=== PATIENT | female | born 1965 | race Caucasian/White ===

== ENCOUNTER 2021-07-03 11:41 | Emergency (ER) | payer OTHER ==
[2021-07-03] MEDS ORDERED: BACLOFEN 10MG T10 MG PO (14:23)
[2021-07-03] MEDS ORDERED: NAPROXEN500 MG PO (14:23)
== END 2021-07-03 17:32 | disposition home or self-care (01) ==
LOC: FER 11:41
DX: S39.012A Strain of muscle, fascia and tendon of lower back, initial encounter (principal); S70.01XA Contusion of right hip, initial encounter; F17.210 Nicotine dependence, cigarettes, uncomplicated; E11.9 Type 2 diabetes mellitus without complications; Z88.0 Allergy status to penicillin; Z79.84 Long term (current) use of oral hypoglycemic drugs; W01.0XXA Fall on same level from slipping, tripping and stumbling without subsequent striking against object, initial encounter; Y92.009 Unspecified place in unspecified non-institutional (private) residence as the place of occurrence of the external cause
CPT/HCPCS: 72131; 72192; 96372; J1100; J1885